=== PATIENT | male | born 1965 | race Caucasian/White ===

== ENCOUNTER 2016-07-13 18:08 | Emergency (ER) | payer OTHER ==
[~2016-07-13] VITALS: Ht 190.5 cm; Wt 67.0 kg
[~2016-07-13 18:08] MED LIST: GUAI600 PO; LEVO.05 PO; ZIPR40 PO
[2016-07-13 18:22] VITALS: BP 149/85; PULSE 62; RESP 16; TEMP 97.7; O2SAT 100
--- NOTE | 2016-07-13 18:35 | PD ---
HPI Chief Complaint: psychiatric evaluation Time Seen by Provider: 18:25 Travel History International Travel<30 days: No Contact w/Intl Traveler<30days: No History of Present Illness HPI 50-year-old male presents to the emergency Department under [place] for psychiatric evaluation. He states that he hears voices, seeing sparkles and feels depressed for 2-1/2 years. He states he was previously on Zyprexa, but has not taken it in quite some time. Patient states that he experimented with electricity 2.5 years ago and believes that he created atoms and these are the voices that he is hearing. The patient states that he intimately feels suicidal and has thought about jumping off bridges. However, he will not commit to a certain plan at this time. He states he drinks alcohol and uses tobacco occasionally. He also smokes marijuana occasionally. He reports that he is a homeless due to his psychiatric illness. He denies any medical complaints at this time. PFSH Past Medical History Anxiety: Yes (DENIES) Depression: Yes Cardiovascular Problems: No Diminished Hearing: No Gastrointestinal Disorders: No Genitourinary: No Implanted Vascular Access Dvce: No Musculoskeletal: No Neurologic: No Psychiatric: Yes (REPORTS AUDITORY HALLUCINATIONS, PSYCHOSIS) Reproductive: No Respiratory: No Immunizations Current: Yes Schizophrenia: Yes Thyroid Disease: Yes (hypothryoidism) Past Surgical History Appendectomy: Yes (Age 2) Other Surgery: No Social History Alcohol Use: Yes (Occassionally) Tobacco Use: Yes Substance Use: Yes (cannabinoids) Allergies-Medications (Allergen,Severity, Reaction): Coded Allergies: No Known Allergies (Unverified , 07/13/16) Per pt. Reported Meds & Prescriptions Reported Meds & Active Scripts Active No Active Prescriptions or Reported Medications Review of Systems Except as stated in HPI: all other systems reviewed are Neg Physical Exam Narrative GENERAL: Well-nourished, well-developed male patient, ambulatory. Afebrile. SKIN: Focused skin assessment warm/dry. HEAD: Normocephalic. Atraumatic. EYES: No scleral icterus. No injection or drainage. NECK: Supple, trachea midline. No JVD or lymphadenopathy. CARDIOVASCULAR: Regular rate and rhythm without murmurs, gallops, or rubs. RESPIRATORY: Breath sounds equal bilaterally. No accessory muscle use. Lungs sounds are clear to auscultation. GASTROINTESTINAL: Abdomen soft, non-tender, nondistended. MUSCULOSKELETAL: No cyanosis, or edema. PSYCHIATRIC: No delusional thought processes. No hallucinations. Data Data Last Documented VS Vital Signs Date Time Temp Pulse Resp B/P Pulse Ox O2 Delivery O2 Flow Rate FiO2 07/13/16 18:22 97.7 62 16 149/85 100 Orders Complete Blood Count With Diff (07/13/16 18:) Comprehensive Metabolic Panel (07/13/16 18:) Psych Screen (07/13/16 18:) Drug Screen, Random Urine (07/13/16 18:) Alcohol (Ethanol) (07/13/16 18:) Labs Laboratory Tests Test 07/13/16 18:35 White Blood Count 6.9 TH/MM3 Red Blood Count 4.94 MIL/MM3 Hemoglobin 15.3 GM/DL Hematocrit 46.5 % Mean Corpuscular Volume 94.2 FL Mean Corpuscular Hemoglobin 30.9 PG Mean Corpuscular Hemoglobin 32.8 % Concent Red Cell Distribution Width 14.0 % Platelet Count 150 TH/MM3 Mean Platelet Volume 9.0 FL Neutrophils (%) (Auto) 60.4 % Lymphocytes (%) (Auto) 30.4 % Monocytes (%) (Auto) 6.8 % Eosinophils (%) (Auto) 1.9 % Basophils (%) (Auto) 0.5 % Neutrophils # (Auto) 4.2 TH/MM3 Lymphocytes # (Auto) 2.1 TH/MM3 Monocytes # (Auto) 0.5 TH/MM3 Eosinophils # (Auto) 0.1 TH/MM3 Basophils # (Auto) 0.0 TH/MM3 CBC Comment DIFF FINAL Differential Comment Sodium Level 139 MEQ/L Potassium Level 4.2 MEQ/L Chloride Level 103 MEQ/L Carbon Dioxide Level 28.2 MEQ/L Anion Gap 8 MEQ/L Blood Urea Nitrogen 27 MG/DL Creatinine 1.28 MG/DL Estimat Glomerular Filtration 59 ML/MIN Rate Random Glucose 90 MG/DL Calcium Level 8.8 MG/DL Total Bilirubin 0.7 MG/DL Aspartate Amino Transf 11 U/L (AST/SGOT) Alanine Aminotransferase 14 U/L (ALT/SGPT) Alkaline Phosphatase 64 U/L Total Protein 7.6 GM/DL Albumin 4.4 GM/DL Urine Opiates Screen NEG Urine Barbiturates Screen NEG Urine Amphetamines Screen NEG Urine Benzodiazepines Screen NEG Urine Cocaine Screen NEG Urine Cannabinoids Screen POS Ethyl Alcohol Level LESS THAN 3 MG/DL MDM Medical Decision Making Medical Screen Exam Complete: Yes Emergency Medical Condition: Yes Medical Record Reviewed: Yes Differential Diagnosis Schizophrenia versus substance abuse versus psychosis Narrative Course 50-year-old male presents to the emergency Department under [place] for psychiatric evaluation. CBC, CMP, alcohol level, urine drug screen are ordered and pending. CBC is unremarkable. CMP shows no acute abnormality. Alcohol level is less than 3. UDS is positive for cannabinoids. The patient is medically cleared for psychiatric screening and disposition. Mental health screening discussed with the patient. Psychiatric screen ordered. Diagnosis Primary Impression: Schizophrenia, paranoid type Additional Instructions: Patient is medically cleared for psychiatric screening and disposition. Scripts No Active Prescriptions or Reported Meds Condition: Savana Astudillo July 13, 2016 18:35
[2016-07-13 18:59] LABS: AUTOMATED NEUTROPHIL # 4.2 TH/MM3 (1.8-7.7); BASOPHIL % 0.5 % (0.0-2.0); EOSINOPHIL # 0.1 TH/MM3 (0-0.4); EOSINOPHIL % 1.9 % (0.0-4.0); HEMATOCRIT 46.5 % (39.0-51.0); HEMO FLAGS DIFF FINAL; LYMPH % 30.4 % (9.0-44.0); LYMPHOCYTE # 2.1 TH/MM3 (1.0-4.8); MEAN CELL VOLUME 94.2 FL (80.0-100.0); MEAN CORPUSCULAR HEMOGLOBIN 30.9 PG (27.0-34.0); MEAN CORPUSCULAR HGB CONC 32.8 % (32.0-36.0); MONO % 6.8 % (0.0-8.0); NEUT % 60.4 % (16.0-70.0); PLATELET COUNT 150 TH/MM3 (150-450); RED BLOOD COUNT 4.94 MIL/MM3 (4.50-5.90); WHITE BLOOD COUNT 6.9 TH/MM3 (4.0-11.0)
[2016-07-13 19:14] LABS: AMPHETAMINE, URINE NEG (NEG); BARBITURATES, URINE NEG (NEG); COCAINE, URINE NEG (NEG)
[2016-07-13 19:30] LABS: ANION GAP 8 MEQ/L (5-15)
[2016-07-13 19:33] LABS: ALKALINE PHOSPHATASE 64 U/L (45-117); ALT (GPT) 14 U/L (12-78); AST (GOT) 11 U/L (15-37); BICARBONATE 28.2 MEQ/L (21.0-32.0); BLOOD UREA NITROGEN 27 MG/DL (7-18); CHLORIDE 103 MEQ/L (98-107); GLOMERULAR FILTRATION RATE 59 ML/MIN (>89); POTASSIUM 4.2 MEQ/L (3.5-5.1); SODIUM (NA) 139 MEQ/L (136-145); TOTAL BILIRUBIN ADULT 0.7 MG/DL (0.2-1.0)
[2016-07-13 22:54] VITALS: BP 105/59; PULSE 62; RESP 18; O2SAT 97
[2016-07-14 02:24] VITALS: BP 97/56; PULSE 57; RESP 18; O2SAT 97
[2016-07-14 06:23] VITALS: BP 107/59; PULSE 52; RESP 16; O2SAT 96
[2016-07-14 11:39] VITALS: BP 102/63; PULSE 63; RESP 18; O2SAT 96
== END 2016-07-14 16:39 ==
LOC: NEDAMB 18:08 → NEPJ 07-14 16:39
DX: F20.0 Paranoid schizophrenia (principal); R45.851 Suicidal ideations; Z72.0 Tobacco use
CPT/HCPCS: 80053; 80307; 85025; 99285